=== PATIENT | female | born 1985 | race Caucasian/White ===

== ENCOUNTER → 2020-09-20 10:44 | Outpatient (BNVA) | payer OTHER, SELFPAY | PROVIDERS: Visit Provider Nurse Practitioner Family | DX: Z20.828 Contact with and (suspected) exposure to other viral communicable diseases (principal) | CPT/HCPCS: 87635 ==

== ENCOUNTER → 2022-08-15 13:47 | Outpatient (BNVA) | payer OTHER, SELFPAY | PROVIDERS: Visit Provider Nurse Practitioner Family | DX: S89.92XA Unspecified injury of left lower leg, initial encounter (principal); X50.1XXA Overexertion from prolonged static or awkward postures, initial encounter | CPT/HCPCS: 73562 ==

== ENCOUNTER → 2024-08-30 11:10 | Outpatient (BNVA) | payer OTHER, SELFPAY | PROVIDERS: Visit Provider Emergency Medicine | DX: R52 Pain, unspecified (principal) | CPT/HCPCS: 87400; 87426 ==